=== PATIENT | female | born 1955 | race Asian ===

== ENCOUNTER 2018-06-16 11:41 | Emergency (ER) | payer OTHER ==
[2018-06-16] MEDS: HYDROCODONE/APAP (5/325) TAB PO (12:21)
== END 2018-06-16 14:25 | disposition home or self-care (01) ==
LOC: FTE 11:41
DX: S00.83XA Contusion of other part of head, initial encounter (principal); S19.9XXA Unspecified injury of neck, initial encounter; M54.6 Pain in thoracic spine; V49.59XA Passenger injured in collision with other motor vehicles in traffic accident, initial encounter
CPT/HCPCS: 70450; 70486; 71045; 72125; 99284-25